=== PATIENT | female | born 1950 | race Two or more races ===

== ENCOUNTER 2018-02-23 10:04 | Outpatient (CLI) | payer OTHER | END 2018-02-23 10:11 | disposition home or self-care (01) | LOC: SONOGRAMA 10:04 | DX: E04.2 Nontoxic multinodular goiter (principal) ==

== ENCOUNTER 2019-03-09 06:10 | Day surgery (SDC) | payer OTHER ==
[~2019-03-09 06:10] MED LIST: AVAPRO150 MG PO; SYNTHROID112 MCG PO
[2019-03-09] MEDS ORDERED: PERCOCET 5-3251 EACH PO (12:05)
== END 2019-03-09 12:45 | disposition home or self-care (01) ==
LOC: CIR.AMB 06:10
DX: E21.0 Primary hyperparathyroidism (principal)